=== PATIENT | male | born 1940 | race Caucasian/White ===

== ENCOUNTER → 2018-02-17 | Outpatient (CLI) | payer MEDICARE, OTHER | END | disposition home or self-care (01) | LOC: CFH 08:55 | PROVIDERS: ATTEND Internal Medicine Cardiovascular Disease | DX: I08.3 Combined rheumatic disorders of mitral, aortic and tricuspid valves (principal); E78.5 Hyperlipidemia, unspecified; I48.92 Unspecified atrial flutter | CPT/HCPCS: 93306 ==

== ENCOUNTER → 2020-01-22 | Outpatient (CLI) | payer MEDICARE, OTHER | END | disposition home or self-care (01) | LOC: CVU 10:20 | PROVIDERS: ATTEND Internal Medicine Cardiovascular Disease | DX: I65.23 Occlusion and stenosis of bilateral carotid arteries (principal); E78.5 Hyperlipidemia, unspecified; Z79.01 Long term (current) use of anticoagulants | CPT/HCPCS: 93880 ==

== ENCOUNTER → 2020-02-18 | Outpatient (CLI) | payer MEDICARE, OTHER | END | disposition home or self-care (01) | LOC: CFH 12:07 | PROVIDERS: ATTEND Internal Medicine Cardiovascular Disease | DX: I08.3 Combined rheumatic disorders of mitral, aortic and tricuspid valves (principal) | CPT/HCPCS: 93306 ==

== ENCOUNTER 2021-01-04 10:47 | Day surgery (SDC) | payer MEDICARE ==
[~2021-01-04] VITALS: Ht 182.9 cm; Wt 84.0 kg
[2021-01-04] MEDS ORDERED: SODIUM CHLORIDE 0.9% 1,000 ML IV SCH (11:30)
[2021-01-04] MEDS ORDERED: TEST200V3 IM (11:36)
[2021-01-04] MEDS ORDERED: DILT120T3 PO (11:37)
[2021-01-04] MEDS ORDERED: WARF2.5T32 PO ×2 (11:37→11:38)
[2021-01-04] MEDS ORDERED: THYR60TA PO (11:37)
[2021-01-04] MEDS ORDERED: GLUC1TAB35 PO (11:40)
[2021-01-04] MEDS ORDERED: VIT1TABL32 PO (11:40)
[2021-01-04] MEDS ORDERED: CHOL10003 PO (11:40)
[2021-01-04] MEDS ORDERED: KRIL1CAP5 PO (11:40)
[2021-01-04] MEDS ORDERED: UBID100C41 PO (11:40)
[2021-01-04 11:48] VITALS: BP 135/81
[2021-01-04 11:55] LABS: BASOPHILS % (AUTO) 1 % (0-1); EOSINOPHILS % (AUTO) 0 % (1-7); LYMPHOCYTES % (AUTO) 23 % (22-44); MEAN CORPUSCULAR HEMOGLOBIN 34.8 pg (27.5-34.5); MEAN CORPUSCULAR HGB CONC 33.6 g/dL (33.2-36.2); MEAN PLATELET VOLUME 8.9 fL (7.4-10.4); MONOCYTES % (AUTO) 11 % (2-9); NEUTROPHILS % (AUTO) 65 % (42-75); PLATELET COUNT 184 x10^3/uL (130-400); RED BLOOD COUNT 4.49 x10^6/uL (4.38-5.82); RED CELL DISTRIBUTION WIDTH 15.9 % (9.4-14.8)
[2021-01-04 11:56] LABS: MD NO
[2021-01-04] MEDS ORDERED: FENTANYL PF 100 MCG/2ML ONE (11:57)
[2021-01-04] MEDS ORDERED: MIDAZOLAM 1 MG/ML, 5ML ONE (11:57)
[2021-01-04] MEDS ORDERED: CEFAZOLIN 1,000 MG ONE (11:57)
[2021-01-04] MEDS ORDERED: CEFAZOLIN PMX 1GM/50ML 50 ML ONE (11:57)
[2021-01-04] MEDS ORDERED: LIDOCAINE 2%, 20ML ONE (11:57)
[2021-01-04 12:04] LABS: INTERNATIONAL NORMALIZED RATIO 1.82 (0.93-1.1); PROTHROMBIN TIME 19.2 Seconds (9.6-11.5)
[2021-01-04 12:06] LABS: ANION GAP 6 mmol/L (5-15); CALCIUM 8.3 mg/dL (8.5-10.1); CHLORIDE 108 mmol/L (98-107); CREATININE 0.85 mg/dL (0.7-1.3)
[2021-01-04] MEDS ORDERED: HYDROcodone/APAP 5/325 TABLET PO PRN (13:30)
[2021-01-04] MEDS ORDERED: Hold all anticoagulants for 24 hours MC PRN (13:30)
[2021-01-04] MEDS ORDERED: SODIUM CHLORIDE FLUSH 10ML SYR IVF SCH (21:00)
== END 2021-01-04 15:02 | disposition home or self-care (01) ==
LOC: CACL 10:47
PROVIDERS: ATTEND Internal Medicine Cardiovascular Disease
DX: Z45.010 Encounter for checking and testing of cardiac pacemaker pulse generator [battery] (principal); I48.4 Atypical atrial flutter; I48.20 Chronic atrial fibrillation, unspecified; I08.0 Rheumatic disorders of both mitral and aortic valves; I25.10 Atherosclerotic heart disease of native coronary artery without angina pectoris; E78.2 Mixed hyperlipidemia; Z79.01 Long term (current) use of anticoagulants; Z79.890 Hormone replacement therapy; Z79.899 Other long term (current) drug therapy
CPT/HCPCS: 33228; 36415; 80048; 85025; 85610; 99156; C1785; J0690; J2250; J3010